=== PATIENT | male | born 1950 | race Caucasian/White ===

== ENCOUNTER 2017-12-26 13:02 | Emergency (ER) | payer OTHER ==
[~2017-12-26] VITALS: Ht 167.6 cm; Wt 80.7 kg
[~2017-12-26 13:02] MED LIST: Tenormin PO; ZOFRAN ODT4 MG PO
[2017-12-26] MEDS ORDERED: PREDNISONE10 M1 PO (15:40)
[2017-12-26 16:58] VITALS: BP 128/88
== END 2017-12-26 16:58 | disposition home or self-care (01) ==
LOC: EME 13:02
DX: M54.5 Low back pain (principal); G89.29 Other chronic pain; M51.37 Other intervertebral disc degeneration, lumbosacral region; I10 Essential (primary) hypertension; Z90.79 Acquired absence of other genital organ(s); Z85.51 Personal history of malignant neoplasm of bladder; Z87.891 Personal history of nicotine dependence
CPT/HCPCS: 72100; 99281; 99283